=== PATIENT | male | born 1965 | race Caucasian/White ===

== ENCOUNTER → 2017-03-22 | Day surgery (SDC) | payer BC ==
[~2017-03-22] MED LIST: Lactated Ringers 1,000 ML IV SCH; Propofol 200 MG/20 ML SDV IV ONE
[2017-03-22 08:17] VITALS: BP 121/67
--- NOTE | 2017-03-22 09:30 | OR ---
DATE OF OPERATION: 03/22/2017 PREOPERATIVE DIAGNOSIS: SCREENING COLONOSCOPY. POSTOPERATIVE DIAGNOSIS: SCREENING COLONOSCOPY. SURGEON: Prince Petit MD PROCEDURE: FULL-LENGTH COLONOSCOPY. ANESTHESIA: SPIRAL [place] W[employer]ER due to elevated BMI and sleep apnea. COMPLICATIONS: None. SPECIMEN: None. FINDINGS: 1. Full-length colonoscopy. 2. Mild sigmoid diverticulosis. RECOMMENDATIONS: Routine colonoscopy in 10 years. INDICATIONS: The patient recently turned 51, in his physical, he was advised to have a screening colonoscopy. DESCRIPTION OF PROCEDURE: The patient was prepped and draped, placed in the left lateral decubitus position. A lubricated Olympus colonoscope was inserted and easily advanced to the cecum. Direct visualization of the ileocecal valve and appendiceal orifice was accomplished. The bowel prep was excellent. Upon withdrawal of the scope; the cecum, ascending and transverse colon were completely benign. In the most distal descending colon, the patient had evidence of diverticulosis. This extended through the rectosigmoid junction and only mild in severity. The entire left colon had no signs of any polyps, mass, ulceration, or bleeding sites. No vascular abnormalities or signs of colitis. The rectal vault was unremarkable. Retroflexion of scope in the rectum showed no perianal lesions. Air was then suctioned. Scope was removed without complication. HUSSAIN/BELL /[id number]
== END ==
LOC: CC.SDS 06:21
PROVIDERS: ATTEND Family Medicine
DX: Z12.11 Encounter for screening for malignant neoplasm of colon (principal); K57.30 Diverticulosis of large intestine without perforation or abscess without bleeding; N40.1 Benign prostatic hyperplasia with lower urinary tract symptoms; R35.1 Nocturia; F32.9 Major depressive disorder, single episode, unspecified; I10 Essential (primary) hypertension; E78.5 Hyperlipidemia, unspecified; E66.9 Obesity, unspecified; E55.9 Vitamin D deficiency, unspecified; Z98.890 Other specified postprocedural states; Z98.52 Vasectomy status; Z72.0 Tobacco use
CPT/HCPCS: 45378; J2704; J7120